=== PATIENT | female | born 1995 | race Caucasian/White ===

== ENCOUNTER 2018-06-29 08:08 | Emergency (ER) | payer BC ==
[2018-06-29] MEDS ORDERED: Aspirin 81 MG Tab.Chew PO ONE (08:25)
[2018-06-29] MEDS ORDERED: Pantoprazole 40 MG Tab.CR PO STA (08:28)
--- NOTE | 2018-06-29 09:07 | EDM.PDOC ---
ED HPI GENERAL MEDICAL PROBLEM - General Chief Complaint: Chest Pain Stated Complaint: LEFT CHEST PAIN Time Seen by Provider: 06/29/18 08:08 Source of Information: Reports: Patient History Limitations: Reports: No Limitations - History of Present Illness INITIAL COMMENTS - FREE TEXT/NARRATIVE: 23 y.o.w.f came to the ed with chest pain. Pain is worse when taking a deep breath. Denies sick contact, is currently not sexually active. Has a lot a stress due to marital issues. No trauma. She is currently on her menstrual period. She does not smoke or drink and does not take street drugs. She has strong F/H of CAD. BBP 105/93 RR 20 Pulse ox 100% on RA Temp 36.8 Pulse 84. Onset Date: 06/29/18 Onset Time: 07:00 Duration: Hour(s): Location: Reports: Chest Quality: Reports: Dull, Other (with deep inspiration or extremity movements) Improves with: Reports: Rest Worsens with: Reports: Movement Context: Reports: Other Associated Symptoms: Reports: Chest Pain (with inspiration) L anterior chest Pain Score (Numeric/FACES): 9 - Related Data Allergies Allergy/AdvReac Type Severity Reaction Status Date / Time cefaclor [From Ceclor] Allergy Hives Verified 06/29/18 08:18 Penicillins Allergy Hives Verified 06/29/18 08:18 Home Meds: Home Meds Cholecalciferol (Vitamin D3) [Vitamin D3] 1,000 unit PO DAILY 06/29/18 [History] Fish Oil/[place]-3 Fatty Acids [Fish Oil 1,000 MG] 2,000 mg BID 06/29/18 [History] Vitamin B Complex 1 each PO DAILY 06/29/18 [History] Past Medical History - Past Health History Medical/Surgical History: Denies Medical/Surgical History ED ROS GENERAL - Review of Systems Review Of Systems: See Below Constitutional: Reports: No Symptoms HEENT: Reports: No Symptoms Respiratory: Reports: Pleuritic Chest Pain Cardiovascular: Reports: Chest Pain Endocrine: Reports: No Symptoms GI/Abdominal: Reports: No Symptoms : Reports: No Symptoms Musculoskeletal: Reports: No Symptoms Skin: Reports: No Symptoms Neurological: Reports: No Symptoms Psychiatric: Reports: No Symptoms Hematologic/Lymphatic: Reports: No Symptoms Immunologic: Reports: No Symptoms ED EXAM, GENERAL - Physical Exam Exam: See Below Exam Limited By: No Limitations General Appearance: Alert, WD/WN, Mild Distress, Moderate Distress Eye Exam: Bilateral Eye: Normal Inspection Ears: Normal External Exam Ear Exam: Bilateral Ear: Auricle Normal Nose: Normal Inspection Throat/Mouth: Normal Inspection, Normal Lips, Normal Voice, No Airway Compromise Head: Atraumatic, Normocephalic Neck: Normal Inspection, Supple, Non-Tender, Full Range of Motion Respiratory/Chest: No Respiratory Distress, Lungs Clear, Normal Breath Sounds, Chest Non-Tender Cardiovascular: Normal Peripheral Pulses, Regular Rate, Rhythm, No Edema, No Gallop, No Murmur, No Rub Peripheral Pulses: 2+: Brachial (R) GI/Abdominal: Normal Bowel Sounds, Soft, Non-Tender, No Organomegaly, No Abnormal Bruit, No Mass, Pelvis Stable (Female) Exam: Deferred Rectal (Female) Exam: Deferred Back Exam: Normal Inspection, Full Range of Motion Extremities: Normal Inspection, Normal Range of Motion, Non-Tender Neurological: Alert, Oriented, CN II-XII Intact, Normal Cognition, Normal Gait Psychiatric: Normal Affect, Normal Mood Skin Exam: Warm, Dry, Intact, Normal Color, No Rash Lymphatic: No Adenopathy EKG INTERPRETATION EKG Date: 06/29/18 Time: 08:15 Rhythm: NSR Rate (Beats/Min): 79 [place]: Normal P-Wave: Present QRS: Normal ST-T: Normal QT: Normal Comparison: NA - No Prior EKG Course - Vital Signs Text/Narrative:: 23 y.o.w.f came to the ed with chest pain. Pain is worse when taking a deep breath. Denies sick contact, is currently not sexually active. Has a lot a stress due to marital issues. No trauma. She is currently on her menstrual period. She does not smoke or drink and does not take street drugs. She has strong F/H of CAD. BBP 105/93 RR 20 Pulse ox 100% on RA Temp 36.8 Pulse 84 PE: WNWD, very pleasant W F with pleuritic Chest pain Labs: CBC, BMP D Dimer INR Troponin were all neg UA: pos keya hematuria, pt is on her menstrual period Imaging: Not indicated Impression: Pleuritic chest pain with strong FH of CAD, dehydration Tx: ASA, NS and Toradol Reexam: 100% pain free after Tx. Pt has a low borderline BP 90/56 which improved after 1 liter of NS. Pt is on the [employer] diet. Plan: D/C with instruction Last Recorded V/S: Last Vital Signs Temp 36.4 C 06/29/18 08:08 Pulse 59 L 06/29/18 10:15 Resp 16 06/29/18 10:15 BP 103/61 06/29/18 10:15 Pulse Ox 100 06/29/18 10:15 - Orders/Labs/Meds Orders: Active Orders 24 hr Category Date Time Status EKG 12 Lead [EK] Routine Ther 06/29/18 08:18 Ordered Labs: Laboratory Tests 06/29/18 06/29/18 06/29/18 Range/Units 08:20 08:20 08:20 WBC 6.3 (4.5-12.0) X10-3/uL RBC 4.87 (3.23-5.20) x10(6)uL Hgb 14.7 (11.5-15.5) g/dL Hct 42.6 (30.0-51.3) % MCV 87.3 (80-96) fL MCH 30.2 (27.7-33.6) pg MCHC 34.6 (32.2-35.4) g/dL RDW 11.6 (11.5-15.5) % Plt Count 239 (125-369) X10(3)uL MPV 7.1 L (7.4-10.4) fL Neut % (Auto) 59.9 (46-82) % Lymph % (Auto) 31.7 (13-37) % [place] % (Auto) 6.7 (4-12) % Eos % (Auto) 1 (1.0-5.0) % Baso % (Auto) 0 (0-2) % Neut # (Auto) 3.8 (1.6-8.3) # Lymph # (Auto) 2.0 (0.6-5.0) # [place] # (Auto) 0.4 (0.0-1.3) # Eos # (Auto) 0.1 (0.0-0.8) # Baso # (Auto) 0.0 (0.0-0.2) # PT 10.3 (8.7-11.1) INR 1.06 (0.89-1.13) D-Dimer, Quantitative 0.50 (0.0-0.59) mg/LFEU Sodium 139 (135-145) mmol/L Potassium 3.8 (3.5-5.3) mmol/L Chloride 103 (100-110) mmol/L Carbon Dioxide 28 (21-32) mmol/L BUN 12 (7-18) mg/dL Creatinine 0.7 (0.55-1.02) mg/dL Est Cr Clr Drug Dosing TNP Estimated GFR (MDRD) > 60 (>60) BUN/Creatinine Ratio 17.1 (9-20) Glucose 93 (80-116) mg/dL Calcium 9.1 (8.6-10.2) mg/dL Troponin I (<0.017-0.056) ng/mL Urine Color (YELLOW) Urine Appearance (CLEAR) Urine pH (5.0-6.5) Ur Specific [place] (1.010-1.025) Urine Protein (NEGATIVE) mg/dL Urine Glucose (UA) (NEGATIVE) mg/dL Urine Ketones (NEGATIVE) mg/dL Urine Occult Blood (NEGATIVE) Urine Nitrite (NEGATIVE) Urine Bilirubin (NEGATIVE) Urine Urobilinogen (NEGATIVE) mg/dL Ur Leukocyte Esterase (NEGATIVE) Urine RBC (0) Urine WBC (0) Ur Squamous Epith Cells (NS,R,O) Urine Bacteria (NS) Urine HCG, Qual (NEGATIVE) 06/29/18 06/29/18 06/29/18 Range/Units 08:20 08:48 08:48 WBC (4.5-12.0) X10-3/uL RBC (3.23-5.20) x10(6)uL Hgb (11.5-15.5) g/dL Hct (30.0-51.3) % MCV (80-96) fL MCH (27.7-33.6) pg MCHC (32.2-35.4) g/dL RDW (11.5-15.5) % Plt Count (125-369) X10(3)uL MPV (7.4-10.4) fL Neut % (Auto) (46-82) % Lymph % (Auto) (13-37) % [place] % (Auto) (4-12) % Eos % (Auto) (1.0-5.0) % Baso % (Auto) (0-2) % Neut # (Auto) (1.6-8.3) # Lymph # (Auto) (0.6-5.0) # [place] # (Auto) (0.0-1.3) # Eos # (Auto) (0.0-0.8) # Baso # (Auto) (0.0-0.2) # PT (8.7-11.1) INR (0.89-1.13) D-Dimer, Quantitative (0.0-0.59) mg/LFEU Sodium (135-145) mmol/L Potassium (3.5-5.3) mmol/L Chloride (100-110) mmol/L Carbon Dioxide (21-32) mmol/L BUN (7-18) mg/dL Creatinine (0.55-1.02) mg/dL Est Cr Clr Drug Dosing Estimated GFR (MDRD) (>60) BUN/Creatinine Ratio (9-20) Glucose (80-116) mg/dL Calcium (8.6-10.2) mg/dL Troponin I < 0.017 L (<0.017-0.056) ng/mL Urine Color Yellow (YELLOW) Urine Appearance Clear (CLEAR) Urine pH 6.0 (5.0-6.5) Ur Specific [place] 1.020 (1.010-1.025) Urine Protein Negative (NEGATIVE) mg/dL Urine Glucose (UA) Normal (NEGATIVE) mg/dL Urine Ketones Negative (NEGATIVE) mg/dL Urine Occult Blood Moderate H (NEGATIVE) Urine Nitrite Negative (NEGATIVE) Urine Bilirubin Negative (NEGATIVE) Urine Urobilinogen Normal (NEGATIVE) mg/dL Ur Leukocyte Esterase Negative (NEGATIVE) Urine RBC 0-5 (0) Urine WBC 0-5 (0) Ur Squamous Epith Cells Few H (NS,R,O) Urine Bacteria Few H (NS) Urine HCG, Qual Negative (NEGATIVE) Meds: Medications Discontinued Medications Generic Name Dose Route Start Last Admin Trade Name Freq PRN Reason Stop Dose Admin Aspirin 324 mg 06/29/18 08:25 06/29/18 08:42 Aspirin PO 06/29/18 08:26 324 mg ONETIME ONE Administration Sodium Chloride 1,000 mls @ 999 mls/hr 06/29/18 09:12 06/29/18 09:20 Normal Saline IV 06/29/18 10:12 999 mls/hr .BOLUS ONE Administration Ketorolac Tromethamine 30 mg 06/29/18 09:14 06/29/18 09:20 Toradol IVPUSH 06/29/18 09:15 30 mg ONETIME ONE Administration Pantoprazole Sodium 40 mg 06/29/18 08:28 06/29/18 08:42 Protonix PO 06/29/18 08:29 40 mg ONETIME STA Administration Departure - Departure Time of Disposition: 10:10 Disposition: Home, Self-Care 01 Condition: Good Clinical Impression: Pleurisy Instructions: Ketorolac injection, Nonspecific Chest Pain, [id number], Pleurisy, [id number] Referrals: Alina Drake RETORT FURNACE HELPER [Primary Care Provider] - Forms: ED Department Discharge, ED Return to Work/School Form Additional Instructions: Please take Motrin for pain with food, please increase water intake, please follow up with your regular MD. You may have to be evaluated by a human resources associate because of your strong family history of coronary artery disease. Please come back if your symptoms get worse acutely. - My Orders Last 24 Hours: My Active Orders 06/29/18 08:18 EKG 12 Lead [EK] Routine - Assessment/Plan Last 24 Hours: My Active Orders 06/29/18 08:18 EKG 12 Lead [EK] Routine
[2018-06-29] MEDS ORDERED: Sodium Chloride 0.9% 1,000 ML IV ONE (09:12)
[2018-06-29] MEDS ORDERED: Ketorolac 30 MG/ML SDV IVPUSH ONE (09:14)
[2018-06-29 11:26] VITALS: BP 103/61
== END 2018-06-29 10:31 | disposition home or self-care (01) ==
LOC: FB.ED 08:08
DX: R07.81 Pleurodynia (principal); R09.1 Pleurisy; Z82.49 Family history of ischemic heart disease and other diseases of the circulatory system; Z88.0 Allergy status to penicillin; Z88.8 Allergy status to other drugs, medicaments and biological substances; Z79.899 Other long term (current) drug therapy
CPT/HCPCS: 36415; 80048; 81001; 81025; 84484; 85025; 85379; 85610; 93005; 96361; 96374; 99284; A9270; J1885; J7030

== ENCOUNTER 2021-05-14 06:44 | Day surgery (SDC) | payer BC ==
[2021-05-14] MEDS ORDERED: Rocuronium 100 MG/10 ML MDV IV ONE (06:45)
[2021-05-14] MEDS ORDERED: Neostigmine Methylsulfate 10 MG/10 ML MDV IVPUSH ONE (06:45)
[2021-05-14] MEDS ORDERED: Lactated Ringers 1,000 ML IV ONE (06:45)
[2021-05-14] MEDS ORDERED: Midazolam 1 MG/ML 2 ML SDV IV ONE (06:45)
[2021-05-14] MEDS ORDERED: Ondansetron 4 MG/2 ML SDV IVPUSH ONE (06:45)
[2021-05-14] MEDS ORDERED: Sodium Chloride 0.9% 10 ML Syringe FLUSH PRN (06:45)
[2021-05-14] MEDS ORDERED: Lactated Ringers 1,000 ML IV SCH (06:45)
[2021-05-14] MEDS ORDERED: Glycopyrrolate 0.2 MG/ML 5 ML MDV IV ONE (06:45)
[2021-05-14] MEDS ORDERED: Scopolamine 1.5 MG Transdermal Patch TOP ONE (06:45)
[2021-05-14] MEDS ORDERED: Ketorolac 30 MG/ML SDV IVPUSH ONE (06:45)
[2021-05-14] MEDS ORDERED: Propofol 200 MG/20 ML SDV IV ONE (06:45)
[2021-05-14] MEDS ORDERED: fentaNYL 100 MCG/2 ML SDV IV ONE (06:45)
[2021-05-14] MEDS ORDERED: Dexamethasone 4 MG/ML 5 ML MDV IVPUSH ONE (06:45)
--- NOTE | 2021-05-14 08:52 | PCM.HPR ---
H & P Addendum review - H & P Addendum Review Date of Original H & P: 04/23/21 Date Reviewed: 05/14/21 Time Reviewed: 07:55 Patient was Examined: No Changes
--- NOTE | 2021-05-14 08:53 | PCM.OPNOTE ---
- General Post-Op/Procedure Note Date of Surgery/Procedure: 05/14/21 Operative Procedure(s): Tonsillectomy Pre Op Diagnosis: Chronic tonsillitis Post-Op Diagnosis: Same Anesthesia Technique: General ET Tube Primary Surgeon: Uriel Paz Anesthesia Provider: Clint Zelaya Pathology: Tonsils EBL in mLs: 5 Complications: None Condition: Good
--- NOTE | 2021-05-14 11:34 | OR ---
DATE OF OPERATION: 05/14/2021 SURGEON: Uriel Paz MD PREOPERATIVE DIAGNOSIS: Chronic tonsillitis. POSTOPERATIVE DIAGNOSIS: Chronic tonsillitis. PROCEDURE PERFORMED: Tonsillectomy. ANESTHESIA: General. PROCEDURE IN DETAIL: The patient was brought to the operating room were general endotracheal anesthesia was administered. Time-out was performed. The patient's head was slightly extended and a log roll placed. The oral gag retractor was inserted. Both tonsils were moderately enlarged, but no acute inflammation at this time. The right tonsil was grasped and retracted toward the midline. Electrocautery was used to dissect along its muscular plane. There were some small bleeders and oozing that were controlled with electrocautery. After the right side was assured to be hemostatic, the left side was removed in a similar fashion. Again, there was some minimal oozing controlled with electrocautery. Tonsillectomy sites were observed for a few minutes and remained hemostatic. The retractor was removed. The patient was extubated and returned to recovery in stable condition. She tolerated the procedure well. ESTIMATED BLOOD LOSS: 5 mL. /[id number] MAC/[place]
[2021-05-14 11:43] VITALS: BP 112/70; PULSE 63
== END 2021-05-14 10:20 | disposition home or self-care (01) ==
LOC: FB.SDS 06:44
PROVIDERS: ATTEND Surgery
DX: J35.01 Chronic tonsillitis (principal)
CPT/HCPCS: 00170; 00812; 42826; 81025; 88304; A9270; J1100; J1885; J2250; J2405; J2704; J2710; J3010; J3490; J7120

== ENCOUNTER 2021-05-17 19:28 | Emergency (ER) | payer BC ==
[2021-05-17] MEDS ORDERED: Sodium Chloride 0.9% 1,000 ML IV ONE (20:05)
[2021-05-17] MEDS ORDERED: methylPREDNISolone Sodium Succinate 40 MG/1 ML SDV IVPUSH ONE (20:05)
[2021-05-17] MEDS ORDERED: Ketorolac 30 MG/ML SDV IVPUSH ONE (20:05)
--- NOTE | 2021-05-17 20:16 | EDM.PDOC ---
ED HPI GENERAL MEDICAL PROBLEM - General Chief Complaint: ENT Problem Stated Complaint: PAIN AFTER TONSILLECTOMY Time Seen by Provider: 05/17/21 19:30 Source of Information: Reports: Patient - History of Present Illness INITIAL COMMENTS - FREE TEXT/NARRATIVE: 26-year-old lady came to the emergency department with bilateral neck swelling and some pain. She had her tonsils removed 3 days ago and has had increased swelling and pain over the last 3 days. She has been instructed not to use NSAIDs. She has been applying ice frequently as directed. However, the swelling has become so bad, not pain so much, but swelling that she has a very difficult time opening her mouth much and cannot eat or drink much. She is worried about the swelling and worried that she has become dehydrated. Her pain is well controlled. She does not complain of bleeding but she is drooling quite a bit. She denies chest pain, shortness of breath, flulike symptoms, fever, chills, change in bowel or bladder habits. - Related Data Allergies Allergy/AdvReac Type Severity Reaction Status Date / Time cefaclor [From [facility]] Allergy Hives Verified 05/14/21 07:13 Penicillins Allergy Hives Verified 05/14/21 07:13 Home Meds: Home Meds Fluticasone Propionate [Flonase] 2 spray NASBOTH DAILY 05/13/21 [History] Past Medical History - Past Health History Medical/Surgical History: Denies Medical/Surgical History Cardiovascular History: Reports: None Respiratory History: Reports: Asthma, Other (See Below) Other Respiratory History: SEASONAL ALLERGIES Gastrointestinal History: Reports: None Genitourinary History: Reports: None MANAGER LPN History: Reports: Other MANAGER LPN History: [id number] Musculoskeletal History: Reports: None Neurological History: Reports: None Psychiatric History: Reports: Anxiety, Depression Endocrine/Metabolic History: Reports: Obesity/BMI 30+ Hematologic History: Reports: None Immunologic History: Reports: None Oncologic (Cancer) History: Reports: None Dermatologic History: Reports: None - Infectious Disease History Infectious Disease History: Reports: Chicken Pox - Past Surgical History Head Surgeries/Procedures: Reports: None HEENT Surgical History: Reports: Myringotomy w Tube(s), Oral Surgery Other HEENT Surgeries/Procedures: bilat tubes in ears, ADENOIDECTOMY Cardiovascular Surgical History: Reports: None Respiratory Surgical History: Reports: None GI Surgical History: Reports: None Female Surgical History: Reports: None Endocrine Surgical History: Reports: None Neurological Surgical History: Reports: None Musculoskeletal Surgical History: Reports: None Oncologic Surgical History: Reports: None Dermatological Surgical History: Reports: None Social & Family History - Family History Family Medical History: No Pertinent Family History - Caffeine Use Caffeine Use: Reports: None ED ROS ENT - Review of Systems Review Of Systems: See Below Constitutional: Reports: No Symptoms HEENT: Reports: Throat Pain, Other (Pain and swelling bilateral lateral neck and posterior oropharynx secondary to tonsillectomy) Respiratory: Reports: No Symptoms Cardiovascular: Reports: No Symptoms Endocrine: Reports: No Symptoms GI/Abdominal: Reports: No Symptoms : Reports: No Symptoms Musculoskeletal: Reports: No Symptoms Skin: Reports: No Symptoms Neurological: Reports: No Symptoms Psychiatric: Reports: No Symptoms Hematologic/Lymphatic: Reports: No Symptoms Immunologic: Reports: No Symptoms ED EXAM, ENT - Physical Exam Exam: See Below Exam Limited By: No Limitations General Appearance: Alert, Mild Distress Eye Exam: Bilateral Eye: EOMI Mouth/Throat: Other (Patient is having some drooling with no obvious blood, lateral neck is visibly swollen with some erythema and significant tenderness to palpation bilaterally) Head: Atraumatic, Normocephalic Neck: Limited Range of Motion, Tender Lateral Respiratory/Chest: No Respiratory Distress, Lungs Clear Cardiovascular: Regular Rate, Rhythm GI/Abdominal: Normal Bowel Sounds, Non-Tender Extremities: Normal Inspection Neurological: Alert, Oriented, Normal Cognition Psychiatric: Anxious Skin: Warm, Dry Course - Vital Signs Text/Narrative:: I spoke with the patient's surgeon and followed his directions. Patient was given 60 mg Solu-Medrol IV, 30 mg Toradol IV, and 1 L normal saline. Her swelling significantly improved and she is now able to talk and swallow. She will go home and take some Tylenol. - Orders/Labs/Meds Orders: Active Orders 24 hr Category Date Time Status UA W/MICROSCOPIC [URIN] Stat Lab 05/17/21 20:04 Ordered Labs: Laboratory Tests 05/17/21 05/17/21 Range/Units 20:20 20:20 WBC 8.5 (3.0-10.3) x10-3/uL RBC 4.67 (3.60-5.20) x10(6)uL Hgb 14.0 (11.4-15.5) g/dL Hct 39.6 (34.2-48.2) % MCV 84.8 (76.7-100.5) fL MCH 30.0 (23.9-33.9) pg MCHC 35.3 H (31.9-34.8) g/dL RDW 12.6 (12.3-16.5) % Plt Count 239 (151-488) x10(3)uL MPV 6.3 L (7.1-12.4) fL Neut % (Auto) 67.1 (30.8-76.2) % Lymph % (Auto) 22.8 (18.4-52.1) % [place] % (Auto) 7.7 (4.4-15.7) % Eos % (Auto) 2.2 (0.6-8.1) % Baso % (Auto) 0.2 (0.2-1.5) % Neut # (Auto) 5.7 (1.5-6.3) x10-3/uL Lymph # (Auto) 1.9 (1.0-4.4) x10-3/uL [place] # (Auto) 0.7 (0.3-1.0) x10-3/uL Eos # (Auto) 0.2 (0.0-0.8) x10-3/uL Baso # (Auto) 0.0 (0.0-0.1) x10-3/uL Sodium 139 (135-145) mmol/L Potassium 4.3 (3.5-5.3) mmol/L Chloride 102 (100-110) mmol/L Carbon Dioxide 29 (21-32) mmol/L BUN 12 (7-18) mg/dL Creatinine 0.7 (0.55-1.02) mg/dL Est Cr Clr Drug Dosing TNP Estimated GFR (MDRD) > 60 (>60) BUN/Creatinine Ratio 17.1 (9-20) Glucose 86 (80-116) mg/dL Calcium 8.5 L (8.6-10.2) mg/dL Total Bilirubin 0.7 (0.1-1.3) mg/dL AST 26 H (5-25) IU/L ALT 24 (12-36) U/L Alkaline Phosphatase 77 (56-112) IU/L Total Protein 7.4 (6.0-8.0) g/dL Albumin 3.3 L (3.5-5.2) g/dL Globulin 4.1 g/dL Albumin/Globulin Ratio 0.8 Meds: Medications Discontinued Medications Generic Name Dose Route Start Last Admin Trade Name Rosanna PRN Reason Stop Dose Admin Sodium Chloride 1,000 mls @ 999 mls/hr 05/17/21 20:05 05/17/21 20:07 Normal Saline IV 05/17/21 21:05 999 mls/hr .BOLUS ONE Administration Ketorolac Tromethamine 30 mg 05/17/21 20:05 05/17/21 20:32 Ketorolac 30 Mg/Ml Sdv IVPUSH 05/17/21 20:06 30 mg ONETIME ONE Administration Methylprednisolone Sodium Succinate 60 mg 05/17/21 20:05 05/17/21 20:32 Methylprednisolone Sodium Succinate 40 Mg/1 Ml Sdv IVPUSH 05/17/21 20:06 60 mg ONETIME ONE Administration Departure - Departure Time of Disposition: 21:42 Disposition: Home, Self-Care 01 Condition: Good Clinical Impression: Post-tonsillectomy pain - Discharge Information *PRESCRIPTION DRUG MONITORING PROGRAM REVIEWED*: Not Applicable *COPY OF PRESCRIPTION DRUG MONITORING REPORT IN PATIENT VANE: Not Applicable Instructions: Acute Pain, Adult Forms: ED Department Discharge Additional Instructions: Patient discharged to home and advised to continue following her surgeon's instructions. If she has significant swelling tomorrow she should call her surgeon and seek further advice/directions. At this time her swelling is visually improved and she is speaking nearly normally and drinking water. She is advised to go home and continue with ice and take Tylenol at home. - My Orders Last 24 Hours: My Active Orders 05/17/21 20:04 UA W/MICROSCOPIC [URIN] Stat - Assessment/Plan Last 24 Hours: My Active Orders 05/17/21 20:04 UA W/MICROSCOPIC [URIN] Stat
[2021-05-17 22:21] VITALS: BP 137/83; PULSE 78
== END 2021-05-17 21:54 | disposition home or self-care (01) ==
LOC: FB.ED 19:28
DX: G89.18 Other acute postprocedural pain (principal); R07.0 Pain in throat; E66.9 Obesity, unspecified; Z68.32 Body mass index [BMI] 32.0-32.9, adult; Z88.0 Allergy status to penicillin; Z88.1 Allergy status to other antibiotic agents
CPT/HCPCS: 36415; 80053; 85025; 96374; 96375; 99283-25; J1885; J2920; J7030

== ENCOUNTER 2023-03-13 01:45 | Emergency (ER) | payer BC ==
[2023-03-13 02:20] LABS: BASOPHILS PERCENT AUTO 0.2 % (0.2-1.5); EOSINOPHILS ABSOLUTE AUTO 0.2 x10-3/uL (0.0-0.8); EOSINOPHILS PERCENT AUTO 2.6 % (0.6-8.1); HEMATOCRIT 39.2 % (34.2-48.2); HEMOGLOBIN 14.4 g/dL (11.4-15.5); LYMPHOCYTES ABSOLUTE AUTO 2.9 x10-3/uL (1.0-4.4); LYMPHOCYTES PERCENT AUTO 43.3 % (18.4-52.1); MEAN CORPUSCULAR HEMOGLOBIN 31.4 pg (23.9-33.9); MEAN CORPUSCULAR HGB CONC 36.7 g/dL (31.9-34.8); MEAN CORPUSCULAR VOLUME 85.4 fL (76.7-100.5); MEAN PLATELET VOLUME 7.2 fL (7.1-12.4); MONOCYTES ABSOLUTE AUTO 0.5 x10-3/uL (0.3-1.0); MONOCYTES PERCENT AUTO 7.3 % (4.4-15.7); NEUTROPHILS ABSOLUTE AUTO 3.1 x10-3/uL (1.5-6.3); NEUTROPHILS PERCENT AUTO 46.6 % (30.8-76.2); PLATELET COUNT,PLT 263 x10(3)uL (151-488); RED BLOOD CELL COUNT 4.59 x10(6)uL (3.60-5.20); RED CELL DISTRIBUTION WIDTH 12.5 % (12.3-16.5); WHITE BLOOD CELL COUNT,WBC 6.7 x10-3/uL (3.0-10.3)
[2023-03-13 02:23] LABS: BLOOD UREA NITROGEN,BUN 14 mg/dL (7-18); CALCIUM 9.2 mg/dL (8.6-10.2); CARBON DIOXIDE,CO2 29 mmol/L (21-32); CHLORIDE,CL 102 mmol/L (100-110); CREATININE 0.7 mg/dL (0.55-1.02); ESTIMATED GFR 119 mL/min (>60); GLUCOSE RANDOM 100 mg/dL (80-116); POTASSIUM,K 3.8 mmol/L (3.5-5.3); SODIUM,NA 140 mmol/L (135-145)
[2023-03-13 03:16] VITALS: BP 97/65; PULSE 63
== END 2023-03-13 03:18 | disposition home or self-care (01) ==
LOC: FB.ED 01:45
DX: R00.2 Palpitations (principal); Z88.0 Allergy status to penicillin; Z79.899 Other long term (current) drug therapy
CPT/HCPCS: 36415; 71046; 80048; 84484; 85025; 93005; 93010; 99283; 99285